=== PATIENT | female | born 1940 | race Caucasian/White ===

== ENCOUNTER 2019-11-15 20:33 | Observation (INO) ==
--- NOTE | 2019-11-15 21:29 | EKG Report ---
Test Performed on : 11/15/2019 8:41:49 PM Test Reason : CP Blood Pressure : / mmHG Vent. Rate : 070 BPM Atrial Rate : 394 BPM P-R Int : 000 ms QRS Dur : 104 ms QT Int : 366 ms P-R-T Axes : 000 011 -03 degrees QTc Int : 395 ms Atrial fibrillation. Possible Anterior infarct , age undetermined Abnormal ECG When compared with ECG of 18-MAR-2016 15:03, Borderline criteria for Anterior infarct are now present Unconfirmed Result
[2019-11-15 21:42] LABS: BASO# 0.05 X1000 (0.0-0.2); BASO% 0.5 % (0.0-0.8); EOS# 0.26 X1000 (0.0-0.7); EOS% 2.4 % (0.0-10.0); HEMATOCRIT 41.8 % (37.0-47.0); IMM GRAN# 0.02 X1000 (0.0-0.04); IMM GRAN% 0.2 % (0.0-0.5); MCH 30.8 PG (27-31); MCHC 33.5 g/dL (33-37); MCV 92.1 FL (81-99); MONO# 1.07 X1000 (0.11-0.59); MONO% 9.9 % (1.7-9.3); NEUT# 6.69 X1000 (1.4-6.5); PLT 316 X1000 (130-400); RBC 4.54 XMIL (4.2-5.4); RDW 12.2 % (11.5-14.5); WBC 10.79 X1000 (4.8-10.8)
--- NOTE | 2019-11-15 21:43 | Diag Imaging Result Doc PS360 ---
EXAM: CHEST-1 VIEW INDICATION: CP TECHNIQUE: One view COMPARISON: 04/11/2019 FINDINGS: There is stable trace scarring in the right upper lung zone. The lungs are grossly clear, otherwise. There is no discrete pleural fluid collection or pneumothorax. There is stable cardiomegaly. There has been interval placement of a pacemaker on the left. IMPRESSION: Stable cardiomegaly and mild scarring in the right upper lung zone. No definite acute chest pathology by plain radiograph, otherwise. Electronically signed by Joaquin Jarvis 11/15/2019 9:41 PM
[2019-11-15 21:58] LABS: AGAP 14; ALBUMIN 4.6 g/dL (3.5-5.0); ALKALINE PHOSPHATASE 69 U/L (32-104); BUN 13 mg/dL (8-22); CHLORIDE 96 mmol/L (98-107); CK PROFILE 45 U/L (24-173); COSMO 271; CREATININE 0.6 mg/dL (0.5-0.9); ESTIMATED GFR > 60; GLUCOSE 117 mg/dL (70-104); GOT 13 U/L (10-30); GPT 14 U/L (10-36); MAGNESIUM 1.7 mg/dL (1.5-2.7); POTASSIUM 4.8 mmol/L (3.5-5.1); SODIUM 135 mmol/L (136-145); TCO2 25 mmol/L (25-35); TOTAL BILIRUBIN 0.86 mg/dL (0.20-1.00); TOTAL PROTEIN 6.9 g/dL (6.3-8.3)
--- NOTE | 2019-11-15 23:02 | PROVIDER DOCUMENTATION ---
This chart was entered by Dulce Sears Scribe, acting as scribe for Sabas Tan MD. HPI-Chest Pain - General Chief Complaint: Chest Pain Stated Complaint: CHEST PAIN/SOB/PACE MAKER Time Seen by Provider: 11/15/19 20:39 Source: patient Allergies/Adverse Reactions: Patient Allergies Allergy/AdvReac Type Severity Reaction Status Date / Time cefdinir [From Omnicef] Allergy RASH Verified 03/17/16 10:35 hydrocodone Allergy RASH Verified 03/17/16 10:35 levofloxacin [From Levaquin] Allergy RASH Verified 03/17/16 10:35 oxycodone [Oxycodone] Allergy RASH Verified 03/17/16 10:35 Penicillins Allergy RASH Verified 03/17/16 10:35 propoxyphene HCl * Allergy RASH Verified 03/17/16 10:35 [From Darvon] Jjcyikf-Afn-Wmv Reductase Allergy Unknown Verified 03/17/16 10:35 Inhibitor sulfamethoxazole Allergy RASH Verified 03/17/16 10:35 [From Bactrim] trimethoprim [From Bactrim] Allergy RASH Verified 03/17/16 10:35 Home Medications: Home Medication List Medication Instructions Recorded Confirmed Last Taken Type Albuterol Sulfate Inhaler 8 gm INH PRN PRN 02/19/14 07/29/17 03/17/16 06:00 History [Ventolin Hfa] Fluticasone 50 Mcg Nasal Menan 16 gm SANJEEV PRN PRN 02/19/14 07/29/17 03/17/16 06:00 History [Flonase] Metformin [Glucophage] 850 mg PO DAILY 02/19/14 07/29/17 07/28/17 History Nitroglycerin 0.4 mg SL PRN PRN 02/19/14 07/29/17 03/11/16 09:00 History Spironolactone 25 mg PO DAILY 02/19/14 07/29/17 07/28/17 History Metoprolol Succinate E.r. [Toprol 100 mg PO DAILY #0 tablet 03/10/15 07/29/17 07/28/17 Rx Xl] Digoxin [Lanoxin] 62.5 mcg PO EVERY OTHER DAY 03/17/16 07/29/17 07/28/17 History Apixaban [Eliquis] 5 mg PO BID 07/29/17 08/01/17 07/28/17 History Furosemide [Lasix] 10 mg PO DIRECTED 07/29/17 08/01/17 07/28/17 History Losartan Potassium 50 mg PO DAILY 07/29/17 07/29/17 07/28/17 History Diltiazem HCl [Cartia Xt] 240 mg PO DAILY 08/01/17 08/01/17 Unknown History Esomeprazole Magnesium [Nexium] 20 mg PO DAILY@0600 08/01/17 08/01/17 Unknown History - History of Present Illness-CP Nature of Presenting Problem: pt is a 79 yr old female presenting with sharp, intermittent central chest pain, onset 1830 this evening. pt reports onset while at rest, also admits headache, dizziness nausea and poor appetite. pt denies any shortness of breath, pain does not radiate Location: reports: central Chest Pain Radiation: reports: no radiation Quality of Pain: reports: sharp Onset/Duration: this evening (0) Timing: still present, intermittent Context/Activities at Onset: reports: light activity Modifying Factors: improves with: palpation (reproduces pain) Associated Symptoms: reports: headache, nausea. denies: shortness of breath Nitro Today/Relief: no nitro taken today Aspirin Treatment Today: no aspirin today Prior Chest Pain/Cardiac Workup: reports: no prior chest pain Similar Symptoms Previously?: No Recently Seen Here or By Another Healthcare Provider: No Review of Systems - Adult - REVIEW OF SYSTEMS - ADULT Constitutional: denies: chills, fever Eyes: reports: no symptoms reported Ears, Nose, Mouth & Throat: denies: ear pain, sinus problem, throat pain Cardiovascular: reports: chest pain. denies: palpitations, syncope Respiratory: denies: cough, shortness of breath Gastrointestinal: reports: nausea, poor appetite. denies: abdominal pain Genitourinary: denies: dysuria, frequency Musculoskeletal: reports: no symptoms reported Integumentary: reports: no symptoms reported Neurological: reports: dizziness/vertigo, headache/migraines Psychiatric: reports: no symptoms reported Endocrine: reports: no symptoms reported Hematologic/Lymphatic: reports: no symptoms reported Allergic/Immunologic: reports: no symptoms reported All Other Systems: Reviewed and Negative Past History - Adult - PAST MEDICAL HISTORY-ADULT Review of Records: reports: Old Records Reviewed, Nursing Assessment Review, Medications Reviewed, Social history reviewed & non-contributory. Major Childhood Illnesses: reports: denies history Cardiovascular: reports: A-Fib, HTN, hyperlipidemia Respiratory: reports: denies history Gastrointestinal: reports: denies history Obstetrical/Gynecological: reports: denies history Genitourinary: reports: denies history Musculoskeletal: reports: denies history Neurological: reports: denies history Endocrine/Immune: reports: Diabetes Other Conditions: reports: denies history - PRIOR SURGERIES/PROCEDURES Surgical/Procedure History: reports: hysterectomy, tonsillectomy, orthopedic (extremity), joint replacement - PRIOR HOSPITALIZATIONS Prior Hospitalizations: reports: none - IMMUNIZATION STATUS Childhood Immunizations: See Nurse Assessment Flu Vaccine: See Nurse Assessment - FAMILY HISTORY Family History: reviewed, not pertinent - SOCIAL HISTORY Smoking: quit greater than 1 year Substance Use: denies Living Situation: family Physical Exam-General - PHYSICAL EXAM-ADULT Initial Vital Signs Reviewed: Yes - CONSTITUTIONAL General Appearance: appears well, alert, no apparent distress - EYES Eyes: PERRL/EOMI - HEAD, EARS, NOSE, MOUTH & THROAT HENMT: normocephalic/atraumatic, moist mucous membranes, normal ENT inspection - NECK Neck: non-tender, full range of motion, supple, normal inspection - RESPIRATORY Respiratory: lungs clear, normal breath sounds, no respiratory distress, no accessory muscle use, other (sternal wall tenderness on palpation, pain is reproduced with the palpation) - CARDIOVASCULAR Cardiovascular: normal peripheral pulses, regular rate, rhythm, no edema - GASTROINTESTINAL (ABDOMEN) Abdominal Exam: normal bowel sounds, non tender, soft - LYMPHATIC Lymphatic: no adenopathy - MUSCULOSKELETAL Back Exam: normal inspection Extremity: normal range of motion, non-tender, normal gait, normal inspection - SKIN Integumentary: normal color, normal turgor, warm/dry - NEUROLOGIC Neurologic: grossly normal, no motor/sensory deficits - PSYCHIATRIC Psych/Mental Status: normal mood/affect - HEART Score HEART Score: History: Slightly Suspicious HEART Score: ECG: Non-Specific Repolarization Disturbance/LBBB/PM HEART Score: Age: > or = 65 Years HEART Score: Risk Factors for Atherosclerotic Disease: 1 or 2 Risk Factors HEART Score: Troponin: < or = Normal Limit Total HEART Score:: 4 Progress - PLAN OF CARE/RESULTS Progress/Plan/Lab Results: Vital Signs - 8 hr 11/14/ 20:45 Temperature 98.0 F Pulse Rate 76 Respiratory Rate 18 Blood Pressure 137/88 O2 Sat by Pulse Oximetry 96 Laboratory Results - last 24 hr 11/15/19 11/15/19 11/15/19 21:23 21:23 21:23 WBC RBC Hgb Hct MCV MCH MCHC RDW Std Deviation Plt Count MPV Immature Gran % (Auto) Neut % (Auto) Lymph % (Auto) [place] % (Auto) Eos % (Auto) Baso % (Auto) Immature Gran # (Auto) Neut # (Auto) Lymph # (Auto) [place] # (Auto) Eos # (Auto) Baso # (Auto) D-Dimer, Quantitative 0.59 H Sodium 135 L Potassium 4.8 Chloride 96 L Carbon Dioxide 25 Anion Gap 14 BUN 13 Creatinine 0.6 Estimated GFR/1.73 m2 > 60 BUN/Creatinine Ratio 22 Glucose 117 H Calculated Osmolality 271 Calcium 11.0 H Magnesium 1.7 Total Bilirubin 0.86 AST 13 ALT 14 Alkaline Phosphatase 69 Creatine Kinase 45 Troponin T High Sens 10 Total Protein 6.9 Albumin 4.6 Globulin 2.3 Albumin/Globulin Ratio 2.0 11/15/19 21:23 WBC 10.79 RBC 4.54 Hgb 14.0 Hct 41.8 MCV 92.1 MCH 30.8 MCHC 33.5 RDW Std Deviation 12.2 Plt Count 316 MPV 10.0 Immature Gran % (Auto) 0.2 Neut % (Auto) 62.0 Lymph % (Auto) 25.0 [place] % (Auto) 9.9 H Eos % (Auto) 2.4 Baso % (Auto) 0.5 Immature Gran # (Auto) 0.02 Neut # (Auto) 6.69 H Lymph # (Auto) 2.70 [place]lands # (Auto) 1.07 H Eos # (Auto) 0.26 Baso # (Auto) 0.05 D-Dimer, Quantitative Sodium Potassium Chloride Carbon Dioxide Anion Gap BUN Creatinine Estimated GFR/1.73 m2 BUN/Creatinine Ratio Glucose Calculated Osmolality Calcium Magnesium Total Bilirubin AST ALT Alkaline Phosphatase Creatine Kinase Troponin T High Sens Total Protein Albumin Globulin Albumin/Globulin Ratio Orders Category Date Time Status CHEST-1 VIEW [RAD] Stat Exams 11/15/19 20:47 Completed CBC WITH ELECTRONIC DIFF [HEME] Stat Lab 11/15/19 21:23 Completed CK PROFILE [SP CHEM] Stat Lab 11/15/19 21:23 Completed COMPREHENSIVE METABOLIC PANEL [CHEM] Stat Lab 11/15/19 21:23 Completed D-DIMER [COAG] Stat Lab 11/15/19 21:23 Completed MAGNESIUM [CHEM] Stat Lab 11/15/19 21:23 Completed TROPONIN T HIGH SENSITIVITY Stat Lab 11/15/19 21:23 Completed EKG [EKG] Stat Ther 11/15/19 20:35 Draft Result Diagrams: 11/15/19 21:23 11/15/19 21:23 - EKG 1 Time of EKG reading by physician:: 20:41 EKG Read and Signed by:: Sabas Tan EKG Interpretation (*Must complete 3 of following elements*): Abnormal (possible anterior infarct-age undetermined) Rate: 70 Rhythm: afib Epworth: normal - XRAY 1 XRAY Study: Chest Impression: Abnormal (Signed EXAM: CHEST-1 VIEW INDICATION: CP TECHNIQUE: One view COMPARISON: 04/11/2019 FINDINGS: There is stable trace scarring in the right upper lung zone. The lungs are grossly clear, otherwise. There is no discrete pleural fluid collection or pneumothorax. There is stable cardiomegaly. There has been interval placement of a pacemaker on the left. IMPRESSION: Stable cardiomegaly and mild scarring in the right upper lung zone. No definite acute chest pathology by plain radiograph, otherwise. Electronically signed by Joaquin Jarvis 11/15/2019 9:41 PM 11/15/192140 Interpreting Physician: Joaquin Jarvis MD Dictated Date/Time: 11/15/192138 cc: Sabas Tan MD; Pawel Izquierdo MD) - CONSULTS/PCP/HOSPITALIST Notification #1 *Consult/PCP/Hospitalist*: d/w Dr Boo Time Discussed: 22:55 Consult Disposition: Admit Departure - Departure Date of Disposition Decision: 11/15/19 Time of Disposition Decision: 22:40 DIAGNOSIS: Chest pain Disposition: HOME 01 Certified Medical Emergency: Emergent Condition: Stable Referrals and Follow-Ups: Pawel Izquierdo MD [Primary Care Provider] - - Critical Care Note This patient required my direct & personal management of CC.: No Attestation - Physician/ JAZMYNE Attestation Patient care was provided by Advanced Practice Provider:: No The physician spent face to face time with patient:: Yes Advanced Practice Provider documentation review:: Supervising physician onsite and consulted in the evaluation and care of this patient. The physician did have a face to face encounter with the patient. This chart was documented by the indicated scribe, (Dulce Sears Scribe) and accurately reflects the services I performed and decisions made by me, Sabas Islas MD, as attested by the provider's signature.
--- NOTE | 2019-11-16 00:40 | HISTORY AND PHYSICAL ---
PRIMARY CARE PHYSICIAN: Dr. Pawel Izquierdo. CHIEF COMPLAINT: Chest pain. HISTORY OF PRESENTING ILLNESS: An 79-year-old female with a history of CHF, chronic atrial fibrillation, diabetes mellitus type 2 and hypertension, who presented to emergency department with 1-day history of having dull substernal chest pain. She states that she had some increased shortness of breath and subsequently she had come to the emergency department. In the ED, she was evaluated due to her persisting presenting symptoms, it was thought that we will place her for observation for further evaluation and management. At the time of my examination, patient denied any headache, fever, chills, nausea, vomiting, diarrhea, hemoptysis, melena, or weight changes, but complained of chest discomfort and shortness of breath. PAST MEDICAL HISTORY: Includes CHF, chronic atrial fibrillation, diabetes mellitus type 2, hypertension. PAST SURGICAL HISTORY: Appendectomy, hysterectomy, bilateral knee surgery, back surgery, pacemaker, tonsillectomy. ALLERGIES: Cefdinir, hydrocodone, Levaquin, oxycodone, penicillin, statins and sulfa. CURRENT MEDICATIONS: Aspirin 81 mg p.o. daily, digoxin 125 mcg p.o. daily, diltiazem 240 mg p.o. daily, Lasix 20 mg p.o. daily, gabapentin 300 mg p.o. daily, metformin 850 mg p.o. daily, metoprolol 50 mg p.o. daily, nitroglycerin 0.4 mg sublingual p.r.n., omeprazole 40 mg p.o. daily, spironolactone 25 mg p.o. daily, telmisartan 20 mg p.o. daily, warfarin 2 mg p.o. daily. SOCIAL HISTORY: No history of smoking, alcohol or illicit drug use. She currently lives with her daughter. FAMILY HISTORY: No history of coronary disease. REVIEW OF SYSTEMS: Fourteen-point review of systems is as in HPI. Other systems negative physical. PHYSICAL EXAMINATION: GENERAL: Cooperative, friendly female, she is resting more comfortably now. VITAL SIGNS: Temperature 98 degrees, pulse 76, respiration 18, blood pressure 137/88. HEENT: Atraumatic, normocephalic. Extraocular movements intact. PERRLA. NECK: No masses. CHEST: Clear to auscultation. CARDIOVASCULAR: Irregular. ABDOMEN: Soft. Positive bowel sounds. EXTREMITIES: No edema. NEUROLOGIC: She is awake, alert, oriented x3. GENITOURINARY: No bladder distention. SKIN: Warm. LABORATORIES AND STUDIES: WBC 10.49, hemoglobin 14.0, hematocrit 41.8, platelets 316,000. Sodium 135, potassium 4.8, chloride 96, CO2 is 25, BUN is 13, creatinine 0.6. Glucose is 117. ASSESSMENT: This is an 79-year-old elderly female with a history of chronic atrial fibrillation, diabetes mellitus type 2 and hypertension, who presented to emergency department with 1-day history of having substernal chest pain. We will place the patient for observation for further evaluation and management. 1. Chest pain. 2. Chronic atrial fibrillation. 3. Diabetes mellitus type 2. 4. Hypertension. PLAN: 1. We will admit patient to medical floor with telemetry. 2. Continue with cardiac workup. Check EKG, serial cardiac enzymes. Have patient continue on aspirin. We will use sublingual nitroglycerin p.r.n. chest pain. 3. We will consult Cardiology. 4. We will continue to monitor patient on telemetry and resume anticoagulation. 5. Monitor blood glucose and put patient on sliding scale insulin regimen. 6. Monitor blood pressure. Resume antihypertensive agent. 7. The patient is on anticoagulation already and this will suffice for DVT prophylaxis. 8. We will continue to follow, reassess and make further recommendation based on patient's clinical course. cc: Praveen Boo MD
[2019-11-16] MEDS ORDERED: ZOFRAN IV PRN (02:52)
[2019-11-16] MEDS ORDERED: TYLENOL PO PRN (02:52)
[2019-11-16] MEDS ORDERED: NITROGLYCERIN SL PRN (02:52)
[2019-11-16 03:23] LABS: BASO# 0.06 X1000 (0.0-0.2); BASO% 0.6 % (0.0-0.8); EOS# 0.22 X1000 (0.0-0.7); EOS% 2.1 % (0.0-10.0); HEMATOCRIT 41.7 % (37.0-47.0); IMM GRAN# 0.02 X1000 (0.0-0.04); IMM GRAN% 0.2 % (0.0-0.5); LYMPH# 3.46 X1000 (1.2-3.4); LYMPH% 32.7 % (20.5-51.1); MCHC 33.6 g/dL (33-37); MCV 92.5 FL (81-99); MONO# 1.21 X1000 (0.11-0.59); MONO% 11.4 % (1.7-9.3); MPV 9.8 FL (7.4-10.4); NEUT# 5.61 X1000 (1.4-6.5); PLT 321 X1000 (130-400); RBC 4.51 XMIL (4.2-5.4); RDW 12.2 % (11.5-14.5); WBC 10.58 X1000 (4.8-10.8)
[2019-11-16 04:18] LABS: INR 1.97; PROTIME 22.9 Seconds (11.0-16.0)
[2019-11-16 04:26] LABS: AGAP 14; BUN 12 mg/dL (8-22); CALCIUM 10.3 mg/dL (8.8-10.2); CHLORIDE 97 mmol/L (98-107); CK PROFILE 38 U/L (24-173); COSMO 273; CREATININE 0.5 mg/dL (0.5-0.9); ESTIMATED GFR > 60; GLUCOSE 118 mg/dL (70-104); POTASSIUM 4.4 mmol/L (3.5-5.1); SODIUM 136 mmol/L (136-145); TCO2 25 mmol/L (25-35)
[2019-11-16] MEDS: PRILOSEC PO SCH ×3 (06:13→07:44)
[2019-11-16] MEDS: HUMULIN R SUBQ SCH ×2 (06:13→12:31)
[2019-11-16] MEDS: ASPIRIN PO SCH ×2 (07:43→12:22)
[2019-11-16] MEDS ORDERED: LANOXIN PO SCH (09:00)
[2019-11-16] MEDS ORDERED: PRILOSEC PO SCH (09:00)
[2019-11-16] MEDS ORDERED: TOPROL XL PO SCH (09:00)
[2019-11-16] MEDS ORDERED: NEURONTIN PO SCH (09:00)
[2019-11-16] MEDS ORDERED: ASPIRIN PO SCH (09:00)
[2019-11-16] MEDS ORDERED: MICARDIS PO SCH (09:00)
[2019-11-16] MEDS ORDERED: CARDIZEM CD PO SCH (09:00)
[2019-11-16 10:10] LABS: URINE SOURCE CLEAN CATCH
--- NOTE | 2019-11-16 10:15 | PROGRESS NOTE ---
DATE: 11/16/2019 Ms. Lisy Stiles was admitted early this morning. Her doctor is Dr. Pawel Izquierdo. She had chest pain. Really described the pain to me a sharp, very sharp in nature. It came on while she was making supper. She has never had this before. She has recently had a pacemaker placed. A past medical history of congestive heart failure, chronic atrial fibrillation, diabetes mellitus type 2, hypertension. She had a 1-day history of a dull substernal, she told me it was very sharp, in the mid chest, really no radiation. No fever or chills. No cough or sputum production. PAST SURGICAL HISTORY: Appendectomy, hysterectomy, bilateral knee surgery, back surgery, and pacemaker recently placed, tonsillectomy. Admitted with a very atypical chest pain. Her cardiac enzymes were unremarkable. High sensitivity troponin was 10 and then 11. CK was 45 and 38. Cholesterol profile, her LDL was 196 and her HDL was 42. REVIEW OF HER CURRENT ORDERS: She is getting nitroglycerin for pain, which she felt like did give it some relief. She is taking aspirin 81 mg a day, digoxin 125 mcg p.o. every other day, diltiazem CD 240 mg a day, Neurontin 300 mg a day, metoprolol 50 mg a day, Micardis 20 mg a day, and Coumadin 2 mg a day. Note, her prothrombin time was very good, prothrombin time 22 and INR 1.97. D-dimer was 0.59. Suspect she will undergo cardiac stress test as this sounds very atypical and it sounds more like musculoskeletal pain. cc: Pavan Gates MD
[2019-11-16 10:19] LABS: BILIRUBIN URINE NEGATIVE (NEGATIVE); BLOOD URINE NEGATIVE (NEGATIVE); COLOR YELLOW; GLUCOSE URINE NEGATIVE (NEGATIVE); KETONE URINE NEGATIVE (NEGATIVE); LEUKOCYTES URINE SMALL (NEGATIVE); NITRITE URINE NEGATIVE (NEGATIVE); PH URINE 6.5; PROTEIN URINE TRACE mg/dL (NEGATIVE); SP GRAVITY URINE 1.015; TURBIDITY URINE CLEAR (CLEAR); UR EPITHELIAL CELLS <10 /HPF (<10); URINE BACTERIA NEGATIVE /HPF; URINE RBC <10 /HPF (<10); URINE WBC <10 /HPF (<10); UROBILINOGEN URINE NORMAL (NORMAL)
--- NOTE | 2019-11-16 10:23 | EKG Report ---
Test Performed on : 11/16/2019 10:12:55 AM Test Reason : afib Blood Pressure : / mmHG Vent. Rate : 066 BPM Atrial Rate : 021 BPM P-R Int : 000 ms QRS Dur : 096 ms QT Int : 378 ms P-R-T Axes : 000 041 015 degrees QTc Int : 396 ms Atrial fibrillation. with frequent ventricular-paced complexes Possible Anterior infarct , age undetermined Abnormal ECG When compared with ECG of 15-NOV-2019 20:41, (Unconfirmed) Electronic ventricular pacemaker has replaced Atrial fibrillation. Confirmed by Juan Barreto MD ([id number]) on 11/16/2019 4:01:24 PM
[2019-11-16] MEDS ORDERED: SOLU-MEDROL IV ONE (11:26)
--- NOTE | 2019-11-16 11:50 | CONSULTATION ---
DATE OF CONSULTATION: 11/16/2019 IMPRESSION: 1. Atypical chest pain with some pleuritic features. Suspect inflammatory nature, possibly related to permanent pacemaker implant 3 weeks ago. 2. Tachycardia/bradycardia syndrome. The patient is status post permanent pacemaker implant 3 weeks ago. 3. Atrial fibrillation, chronic. 4. Hypertension. 5. Type 2 diabetes mellitus. 6. Hyperlipidemia. RECOMMENDATIONS: 1. Follow up cardiac enzymes. Thus far, serial troponins have been normal. 2. Repeat limited echocardiography to screen for any possible pericardial fluid. 3. Anti-inflammatory regimen. Given that the patient is on warfarin, may consider a single dose of corticosteroid. 4. If serial cardiac enzymes are negative and echocardiography is benign, it would be reasonable for the patient to be discharged to home. HISTORY: This 79-year-old, white female with past history of chronic atrial fibrillation, tachycardia/bradycardia syndrome, recent permanent pacemaker implant on 10/27/2019, hypertension, and type 2 diabetes mellitus was admitted to the emergency room because of chest pain. She reports recent onset of sharp left parasternal chest discomfort that might be aggravated by the act of trying to get up from a chair and leaning forward. She also has noted some tendency for discomfort to occur if she shifts in bed. She has not had any other chest discomfort. Chest discomfort is very brief and somewhat fleeting in nature. She has had no shortness of breath, fever. No cough. There have been no palpitations. There has never been no lightheadedness or presyncope. PAST MEDICAL HISTORY: 1. Chronic atrial fibrillation. 2. Hypertension. 3. Type 2 diabetes mellitus. 4. Tachycardia/bradycardia syndrome. 5. Tendency for congestive heart failure with preserved left ventricular ejection fraction. 6. Hyperlipidemia. PAST SURGICAL HISTORY: Includes recent permanent pacemaker implant with [employer] device on 10/27/2019, appendectomy, hysterectomy, bilateral knee surgery, tonsillectomy, unspecified back surgery. ALLERGIES: She has multiple drug allergies as recorded. MEDICATIONS PRIOR TO ADMISSION: As listed. It is noteworthy that she has been on warfarin, resumed the day following her permanent pacemaker implant, with recent INR of 2.0. SOCIAL HISTORY: She is and lives at home with her daughter. She does not smoke nor use alcohol. FAMILY HISTORY: Negative for premature coronary disease. REVIEW OF SYSTEMS: Pulmonary: Negative. Gastrointestinal: Negative. Constitutional: Negative. The remainder of the review of systems is negative/noncontributory with 14 total systems reviewed. PHYSICAL EXAMINATION: General: This is an overweight, elderly, white female in no distress on room air. Vital Signs: Blood pressure 128/72, heart rate 65. HEENT: Extraocular movements appear to be intact. Mucous membranes are moist. Neck: Supple without jugular venous distention. There are no carotid bruits. Cardiac: Irregular rate and rhythm, without appreciable murmur, rub, or gallop. Abdomen: Soft. Bowel sounds are normal. Extremities: Without edema. Neurologic: She is alert and fully oriented. Speech is fluent. She moves all 4 extremities equally well. Skin: Warm and dry. Psychiatric: Her mood is appropriate. PERTINENT DATA: A 12-lead EKG demonstrates atrial fibrillation with demand ventricular pacing and mild delay in precordial R-wave progression. IMAGING AND LABORATORY DATA: Laboratory data includes sodium 136, potassium 4.4, chloride 97, carbon dioxide 25, BUN 12, creatinine 0.5, glucose 118. White blood cell count 10.58, hematocrit 41.7, hemoglobin 14.0, platelet count 321,000. INR 1.97. Initial CPK 45, followup CPK 38. Initial troponin T high-sensitivity 10, followup troponin T high-sensitivity 11. D-dimer 0.59. Chest x-ray was reviewed and demonstrates stable cardiomegaly, but no acute infiltrate. cc: Jose A Jenkins MD
--- NOTE | 2019-11-16 14:46 | DISCHARGE SUMMARY ---
ADMISSION DATE: 11/16/2019 DISCHARGE DATE: 11/16/2019 HISTORY: Ms. Stiles was put in on the morning of 11/16/2019, 79-year-old who complained of chest pain which she described to me was sharp chest pain that was kind of continuous, started when she was making supper. Denied any squeezing or pressure. She has a history of congestive heart failure, chronic atrial fibrillation, diabetes mellitus type 2, hypertension, presented to the emergency department with a one-day history of what she told them was dull substernal chest pain. She told me it was pretty sharp and continuous and not related to exertion. She had some increased shortness of breath and subsequently came to the emergency department. In the emergency room she was evaluated, had persisting presenting symptoms and placed her in for observation. Her troponins were low and negative. EKGs unremarkable. PAST MEDICAL HISTORY: Includes, congestive heart failure, chronic atrial fibrillation, diabetes mellitus type 2, and hypertension. PAST SURGICAL HISTORY: 1. Status post appendectomy. 2. Status post hysterectomy. 3. Bilateral knee surgery. 4. Back surgery. 5. Pacemaker. 6. Tonsillectomy. ALLERGIES: Cefdinir, hydrocodone, Levaquin, oxycodone, penicillin, statins, and sulfa. HOSPITAL COURSE: So, admitted for very atypical chest pain, remained in sinus rhythm. She does have a history of atrial fibrillation. She has recently had an echocardiogram. Echocardiogram done on 10/03/2019, had a pacemaker placed on the left side, at that time normal left ventricular function with ejection fraction of 60% to 65%. No significant valvular dysfunction. She no longer has any chest pain. Her pain sounds more pleuritic in nature. Her chest x-ray was unremarkable and no sign of active infection. She has recently had a pacemaker placed and still suspect she may have some inflammation on that left side of her chest. She would like to go home. I do not think we need to repeat an echocardiogram and I will discharge her home. DISCHARGE MEDICATIONS: She will be on aspirin 81 mg a day, digoxin 125 mcg p.o. every other day, diltiazem 240 mg daily, Lasix 10 mg p.o. as directed per Cardiology (I think that is dependent on her weight), gabapentin 300 mg a day, metformin 850 mg a day, Toprol-XL 50 mg daily, she does have nitroglycerin tablets 0.4 sublingual, we will give her some refills on that, Prilosec 40 mg a day, spironolactone 25 mg daily, telmisartan 20 mg p.o. daily, and Coumadin 2 mg daily. Note that her ProTime was therapeutic. Pro time was 22 and INR was 1.97. 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 This chest pain is very atypical for sign of active ischemia. We will let her go home. Continue her current medications. cc: Pavan Gates MD
[2019-11-16 15:58] VITALS: BP 138/64
[2019-11-16] MEDS ORDERED: COUMADIN PO SCH (21:00)
== END 2019-11-16 16:21 | disposition home or self-care (01) ==
LOC: ED 20:33 → 3N 20:33 → SUATTDRO 11-16 02:07
PROVIDERS: ATTEND Emergency Medicine